=== PATIENT | female | born 1985 | race Caucasian/White ===

== ENCOUNTER → 2020-07-23 12:03 | Outpatient (CLI) | payer OTHER, MEDICAID, SELFPAY ==
[2020-07-23 18:16] LABS: Hep C Virus Ab w/Reflex Quant NEGATIVE s/c (NEGATIVE)
[2020-07-24 08:56] LABS: Strep Grp B PCR NEG for Grp B Strep
[2020-07-24 11:50] LABS: Varicella IgG Antibody 1719 index (Immune >165)
== END ==
PROVIDERS: Referring Provider Obstetrics & Gynecology; Visit Provider Obstetrics & Gynecology
DX: Z34.83 Encounter for supervision of other normal pregnancy, third trimester (principal); Z3A.36 36 weeks gestation of pregnancy
CPT/HCPCS: 36415; 86787; 86803; 87653

== ENCOUNTER 2020-07-23 12:17 | Outpatient (CLI) | payer OTHER, MEDICAID, SELFPAY ==
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
== END 2020-07-23 13:53 | disposition home or self-care (01) ==
LOC: LABOR 12:31 → OB 07-24 06:45
PROVIDERS: Referring Provider Obstetrics & Gynecology; Visit Provider Obstetrics & Gynecology
DX: O26.893 Other specified pregnancy related conditions, third trimester (principal); Z3A.36 36 weeks gestation of pregnancy; R52 Pain, unspecified; Z79.899 Other long term (current) drug therapy
CPT/HCPCS: 36415; 59025; 86787; 86803; 87653; G0378; G0379

== ENCOUNTER → 2020-08-02 19:20 | Outpatient (ROUT) | payer OTHER, MEDICAID, SELFPAY ==
[2020-08-02 20:31] LABS: UR Morphine/Opiate cutoff 300 Negative (Negative); Ur Creatinine Normal (Normal); Ur Specific Gravity Normal (Normal); Urine Amphetamines Negative (Negative); Urine Barbiturates Negative (Negative); Urine Benzodiazepines Negative (Negative); Urine Cocaine Negative (Negative); Urine MDMA Negative (Negative); Urine Methadone Negative (Negative); Urine Methamphetamines Negative (Negative); Urine Oxycodone Negative (Negative); Urine Phencyclidine Negative (Negative); Urine Tetrahydrocannabinol Negative (Negative); Urine Tricyclic Antidepressant Negative (Negative); Urine pH Normal (Normal)
== END ==
PROVIDERS: Visit Provider Obstetrics & Gynecology
DX: Z79.891 Long term (current) use of opiate analgesic (principal)
CPT/HCPCS: 80305

== ENCOUNTER 2020-08-07 15:50 | Outpatient (CLI) | payer OTHER, MEDICAID, SELFPAY | END 2020-08-07 17:00 | disposition home or self-care (01) | LOC: LABOR 15:56 → OB 08-08 07:38 | PROVIDERS: Referring Provider Obstetrics & Gynecology; Visit Provider Obstetrics & Gynecology | DX: Z03.71 Encounter for suspected problem with amniotic cavity and membrane ruled out (principal); Z3A.38 38 weeks gestation of pregnancy | CPT/HCPCS: 59025; 84112; G0378; G0379 ==

== ENCOUNTER 2020-08-09 06:52 | Inpatient (IN) | payer OTHER, MEDICAID, SELFPAY ==
[2020-08-09] MEDS: LACTATED RINGERS 1,000 ML 100 ML IV (07:30)
[2020-08-09 08:24] LABS: Add Manual Diff / Slide Review NO; Basophils Absolute Auto 0 /uL (0-100); Basophils Percent Auto 0.4 % (0-2); Eosinophils Absolute Auto 200 /uL (0-450); Eosinophils Percent Auto 2.8 % (2-4); Hematocrit 32.3 % (36-46); Hemoglobin 10.5 g/dL (12.0-16.0); Lymphocytes Absolute Auto 2200 /uL (1100-4500); Lymphocytes Percent Auto 25.6 % (25-40); Mean Corpuscular HGB Conc 32.6 % (30-36); Mean Corpuscular Hemoglobin 25.8 PG (26-34); Mean Corpuscular Volume 79.2 fL (80-100); Monocytes Absolute Auto 1000 /uL (0-900); Monocytes Percent Auto 11.9 % (3-14); Neutrophils Absolute Auto 5200 /uL (1500-7000); Neutrophils Percent Auto 59.3 % (50-75); Platelet Count 229 X10^3/uL (150-400); Red Blood Cell Count 4.08 X10^6/uL (4.0-5.2); Red Cell Distribution Width 14.2 % (11.6-14.8); White Blood Cell Count 8.7 X10^3/uL (4.5-11.0)
[2020-08-09] MEDS: OXYTOCIN PREMIX 30 UNIT/500 ML PLAST..BAG IV (08:41)
[2020-08-09 09:54] VITALS: BP 126/68
[2020-08-09 10:51] LABS: COVID19 - ADMIT (NP swab/PCR) Negative (Negative)
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
--- NOTE | 2020-08-09 18:49 | PM.OBDS.1 ---
Discharge Providers Provider Date of admission: 08/09/20 06:52 Discharge Date: 08/11/20 Primary care physician: Doctor Nuria MD Discharge provider: Tatiana Arias MD Summary Hospital Course Date Patient Seen: 08/11/20 Time Patient Seen: 10:55 Diagnoses: Intrauterine at 39-,1/7 weeks gestation Induction of labor Artificial rupture of membranes Epidural analgesia Spontaneous vaginal delivery First-degree vaginal laceration with repair Bupenorphine patch use duing Hospital Course: Patient is a 35-year-old 3 para 2 presented on August 09, 2020 for scheduled induction of labor. She was started on Pitocin. She received an epidural for pain management. Artificial rupture membranes was performed with clear amniotic fluid. She progressed to complete dilation and had an uncomplicated delivery. Her course was unremarkable for the mom. She is discharged home on day # 2. Due to the Bupenorphine patch use due to back pain, the baby needs to be observed for a total of 4 days for MARY. Peripartum Data Infant Delivery Method: Natural Vaginal Laceration Description: Vaginal - 1st Degree Episiotomy description: None Procedures: Induction of labor with Pitocin Artificial rupture of membranes Epidural analgesia Spontaneous vaginal delivery First-degree vaginal laceration with repair complications: none [place] 1: Gender: Male Disposition of : other (Observation for 2 more days due to possiblility of MARY) Status at Discharge Cognitive/behavioral status at discharge: oriented Functional status at discharge: independent ambulation Overall status at discharge: patient is progressing back to baseline Time Spent with Patient Time attestation: Total time spent providing and/or coordinating discharge services: Time spent: Less than 30 minutes Objective Labs Result Diagrams: 08/10/20 06:38 Labs: Laboratory Results - last 24 hr 08/09/20 08/09/20 08/09/20 07:40 07:40 08:16 WBC 8.7 RBC 4.08 Hgb 10.5 L Hct 32.3 L MCV 79.2 L MCH 25.8 L MCHC 32.6 RDW 14.2 Plt Count 229 Neut % (Auto) 59.3 Lymph % (Auto) 25.6 [place] % (Auto) 11.9 Eos % (Auto) 2.8 Baso % (Auto) 0.4 Neut # (Auto) 5200 Lymph # (Auto) 2200 [place] # (Auto) 1000 H Eos # (Auto) 200 Baso # (Auto) 0 SARS-CoV-2 (PCR) Negative Blood Type O Positive Antibody Screen Negative Exam Vital Signs (past 8 hours): Generally: Patient is sitting up in bed, holding , no acute distress Fundus: Firm at U-1 Extremities: Negative Homans, no edema Discharge Plan Discharge Plan Patient Disposition: Home Provider Discharge Comment: Call with fever, chills, or bleeding vaginally more than a pad an hour Ibuprofen 600 mg every 6 hours as needed Tylenol 650 mg every 6 hours as needed Continue vitamins Discharge orders & Medications Prescriptions: Continued buprenorphine [Butrans] 10 mcg/hour patch weekly 1 patch transdermal QWEEK Qty: 4 RF: 2 prenat.vits,rodolfo,gac-dmfe-ffkoe Tablet 1 tab PO DAILY RF: 0 diphenhydramine HCl [Benadryl] 25 mg capsule 25 mg PO TID PRN (Reason: Prevent Allergic Reaction) RF: 0 Follow up/Referrals: Tatiana Arias MD [Physician] - 6 Weeks (My office will call on Thursday to schedule 6 week visit) Diet/Activity/Treatments Diet: Regular Activity: Nothing in the vagina for 6 weeks Skin/Wound/Dressing Care Report to your healthcare provider any signs of infection, such as:: chills, fever, increased pain and unusual drainage Visit Report/Discharge Packet Instructions: DI for Labor and Delivery, Vaginal
--- NOTE | 2020-08-09 18:54 | PM.OBPNLAB ---
Date/Time Date Patient Seen: 08/09/20 Time Patient Seen: 12:58 Pain Control Pain control: epidural Pelvic Exam Effacement (%): 80 station: -1 Amniotic membrane status: Intact Contractions Pitocin rate (mU/min): 12 Contraction frequency (min): 3 Contraction duration (min): 1 Contraction intensity: Strong/Firm Status status: Category l Heart Rate Baseline: 135 Monitor Accelerations: Present Monitor Decelerations: Absent Monitor Variability: Moderate Assessment and Plan Assessment: active labor and induction ongoing Comments: AROM with clear amniotic fluid
--- NOTE | 2020-08-09 18:57 | P.PCNOB_ITS ---
Events: Labor Induction Labor & Delivery Delivery date: 08/09/20 Cervical ripening method: none Induction method: per pitocin protocol Delivery augmentation: rupture of membranes Delivery monitor: external FHT and external uterine Route of delivery: Episiotomy description: None L&D Laceration Description: Vaginal - 1st Degree Delivery repair: chromic Estimated blood loss (mL): 150 Anesthesia Type: Epidural Complications: None Narrative: Patient complete and pushed for 10 minutes. At 5:55 p.m., a live male delivered spontaneously over an intact perineum in the [place] presentation. There was a compound presentation with the right arm. The remainder of the body delivered without difficulty and was placed on mom's abdomen. The cord was double clamped and cut after it stopped pulsing. Pitocin was given in the IV fluids. Cord bloods were obtained. The placenta delivered intact with a three-vessel cord at 6:02 p.m.. Fundus was massaged to firm. A first-degree vaginal laceration was repaired with 3-0 chromic. Hemostasis was achieved. Apgars 8 at 1 minute and 9 at 5 minutes. Epidural analgesia. . Mom and infant stable to recovery. [place] Baby 1: gender: Male Presentation: compound (Right arm) Position: Right Occiput Anterior Placenta delivery description: Spontaneous Cord Vessel Description: 3 Vessels score (1 min): 8 score (5 min): 9 weight: 7 lb 1 oz Plan for aftercare: Routine care
[2020-08-09] MEDS: ACETAMINOPHEN 325 MG TABLET 650 MG PO (19:49)
[2020-08-09] MEDS: IBUPROFEN 600 MG TABLET PO (19:49)
[2020-08-09] MEDS: OXYCODONE IR 5 MG TABLET PO (22:13)
[2020-08-10] MEDS: KETOROLAC 30 MG/ML VIAL IV ×4 (01:56→19:56)
[2020-08-10] MEDS: ACETAMINOPHEN 325 MG TABLET 650 MG PO ×4 (01:56→19:56)
[2020-08-10 07:16] LABS: Hemoglobin 9.6 g/dL (12.0-16.0)
[2020-08-10] MEDS: DOCUSATE 100 MG CAPSULE PO (08:10)
--- NOTE | 2020-08-10 15:10 | P.PNOB_ITS ---
Subjective - OB Subjective Patient comments: no complaints [place] baby status: nursing well feeding status: exclusively breast feeding Date Patient Seen: 08/10/20 Time Patient Seen: 09:20 Interval history: Patient is a 35-year-old 3 para 2 day # 1 status post spontaneous vaginal delivery after induction of labor. Patient having some pain/cramping with . A little tearful regarding baby having to stay 4 days. Exam Vital Signs (past 8 hours): Generally: Patient lying in bed, holding , no acute distress Fundus: Firm at U -1 Extremities: Negative Homans, no edema Objective Labs Result Diagrams: 08/10/20 06:38 Labs: Laboratory Results - last 24 hr 08/10/20 06:38 Hgb 9.6 L Hct 29.0 L Assessment & Plan Plan day: 1 plan OB: routine care Time Spent With Patient Time: Total time spent is greater than 50% in coordination of care (as documented) at patient's floor/unit and/or counseling patient: Time with patient: 15-24 minutes
[2020-08-11] MEDS: IBUPROFEN 600 MG TABLET PO (01:56)
[2020-08-11] MEDS: ACETAMINOPHEN 325 MG TABLET 650 MG PO (01:56)
--- NOTE | 2020-08-11 10:53 | PM.OBPN.1 ---
Subjective - OB Subjective Patient comments: no complaints and pain well controlled baby status: doing well and nursing well feeding status: exclusively breast feeding Date Patient Seen: 08/11/20 Time Patient Seen: 10:20 Interval history: Patient is a 35-year-old 3 para 2 day # 2 status post spontaneous vaginal delivery after induction of labor. is going well. Bleeding is tapering. Pain is well controlled. Exam Vital Signs (past 8 hours): Generally: Patient is sitting up in bed, holding infant, no acute distress Fundus: Firm at U -1 Extremities: Negative Homans, no edema Objective Labs Result Diagrams: 08/10/20 06:38 Assessment & Plan Plan day: 2 plan OB: discharge home and follow up 6 weeks Time Spent With Patient Time: Total time spent is greater than 50% in coordination of care (as documented) at patient's floor/unit and/or counseling patient: Time with patient: 15-24 minutes
--- NOTE | 2020-08-12 16:43 | P.DS_ITS ---
Discharge Providers Provider Date of admission: 08/09/20 06:52 Discharge Date: 08/11/20 Consults: 08/10/20 19:00 Consult to Animal Groomer Routine Comment: Discharge provider: Tatiana Arias MD Summary Hospital Course Date Patient Seen: 08/11/20 Time Patient Seen: 10:00 Diagnoses: 39 weeks gestation Induction of labor with Pitocin Artificial rupture of membranes Epidural analgesia Spontaneous vaginal delivery First-degree laceration and repair Hospital Course: Patient is a 35-year-old 3 para 2 presented on August 09, 2020 for scheduled induction of labor. She was started on Pitocin. She received an epidural for pain management. Artificial rupture membranes was performed with clear amniotic fluid. She progressed to complete dilation and had an uncomplicated delivery. Her course was unremarkable for the mom. She is discharged home on day # 2. Due to the Bupenorphine patch use due to back pain, the baby needs to be observed for a total of 4 days for MARY. Peripartum Data Infant Delivery Method: Natural Vaginal Laceration Description: Vaginal - 1st Degree Episiotomy description: None Procedures: Pitocin induction of labor Artificial rupture of membranes Spontaneous vaginal delivery First-degree vaginal laceration and repair complications: none [place] 1: Gender: Male Disposition of : other (Observation for MARY) Status at Discharge Cognitive/behavioral status at discharge: oriented Functional status at discharge: independent ambulation Overall status at discharge: patient is progressing back to baseline Time Spent with Patient Time attestation: Total time spent providing and/or coordinating discharge services: Time spent: Less than 30 minutes Objective Labs Result Diagrams: 08/10/20 06:38 Exam Vital Signs (past 8 hours): Generally: Patient is sitting up in bed, holding , no acute distress Fundus: Firm at U -1 Extremities: Negative Homans, no edema Discharge Plan Discharge Plan Patient Disposition: Home Provider Discharge Comment: Call with fever, chills, or bleeding vaginally more than a pad an hour Ibuprofen 600 mg every 6 hours as needed Tylenol 650 mg every 6 hours as needed Continue vitamins Discharge orders & Medications Prescriptions: Continued buprenorphine [Butrans] 10 mcg/hour patch weekly 1 patch transdermal QWEEK Qty: 4 RF: 2 prenat.vits,rodolfo,tfl-voti-diwhp Tablet 1 tab PO DAILY RF: 0 diphenhydramine HCl [Benadryl] 25 mg capsule 25 mg PO TID PRN (Reason: Prevent Allergic Reaction) RF: 0 Follow up/Referrals: Tatiana Arias MD [Physician] - 6 Weeks (My office will call on Thursday to schedule 6 week visit) Diet/Activity/Treatments Diet: Regular Activity: Nothing in the vagina for 6 weeks Skin/Wound/Dressing Care Report to your healthcare provider any signs of infection, such as:: chills, fever, increased pain and unusual drainage Visit Report/Discharge Packet Instructions: DI for Labor and Delivery, Vaginal
== END 2020-08-11 10:30 | disposition home or self-care (01) | DRG 560 ==
PROVIDERS: Admitting Provider Obstetrics & Gynecology; Referring Provider Obstetrics & Gynecology; Visit Provider Obstetrics & Gynecology
DX: O70.0 First degree perineal laceration during delivery (principal); Z3A.39 39 weeks gestation of pregnancy; Z37.0 Single live birth; Z20.822 Contact with and (suspected) exposure to COVID-19; O32.2XX0 Maternal care for transverse and oblique lie, not applicable or unspecified; O99.891 Other specified diseases and conditions complicating pregnancy; M54.9 Dorsalgia, unspecified
CPT/HCPCS: 01967; 36415; 59050; 59409; 85014; 85018; 85025; 86850; 86900; 86901; 87635; C9803; G0379; J1885; J2590